=== PATIENT | female | born 1975 | race Caucasian/White ===

== ENCOUNTER 2018-01-25 13:40 | Emergency (ER) | payer SELFPAY | END 2018-01-25 14:10 | disposition home or self-care (01) | LOC: ERS 13:40 | DX: L30.9 Dermatitis, unspecified (principal); F32.9 Major depressive disorder, single episode, unspecified | CPT/HCPCS: 99281 ==

== ENCOUNTER 2018-07-02 01:05 | Emergency (ER) | payer SELFPAY ==
[2018-07-02] MEDS ORDERED: Ketorolac Tromethamine 60 MG/2 ML VIAL ONE (01:45)
--- NOTE | 2018-07-02 07:48 | RAD ---
RIGHT FOOT 3 VIEWS: Date: 07/02/18 COMPARISON: None. HISTORY: Injury, trauma, pain. FINDINGS: There is an obliquely oriented fracture involving the mid shaft of the fifth proximal phalanx. No hazel dence for dislocation. Distal fracture fragment demonstrates lateral angulation. No intraarticular ex tension. IMPRESSION: Fracture involving the mid shaft fifth proximal phalanx. POS: OFF
== END 2018-07-02 02:12 | disposition home or self-care (01) ==
LOC: ERS 01:05
DX: S92.514A Nondisplaced fracture of proximal phalanx of right lesser toe(s), initial encounter for closed fracture (principal); W20.8XXA Other cause of strike by thrown, projected or falling object, initial encounter
CPT/HCPCS: 96372; J1885